=== PATIENT | female | born 1975 | race African-American/Black ===

== ENCOUNTER 2016-10-07 09:06 | Emergency (ER) | payer OTHER ==
[~2016-10-07 09:06] MED LIST: METR500T PO
[2016-10-07 09:17] VITALS: BP 102/64
--- NOTE | 2016-10-07 09:30 | PHYS DOC ---
Past Medical History Past Medical History: No Pertinent History Past Surgical History: Tubal ligation, Other Additional Past Surgical Histo: uterine ablation, fistula, bunion, bilateral carpal tunnel Alcohol Use: None Drug Use: None Adult General Chief Complaint Chief Complaint: COUGH HPI HPI Patient is a 41 year old female who presents with complaint of cough, body aches, sore throat for the past 5 days. Patient states that her symptoms have been persistent since onset. Patient states that she has had productive cough of yellow sputum. Patient also states that she has burning in her chest with both inspiration and expiration. Patient states that she has had fevers at home. Denies any nausea, vomiting, or abdominal pain. Patient has been taking [id number] medication with minimal relief in symptoms. Patient denies any history of asthma. Review of Systems Review of Systems Constitutional: Fever, body aches [] Eyes: Denies change in visual acuity, redness, or eye pain [] HENT: Nasal congestion, sore throat [] Respiratory: Shortness of breath, cough [] Cardiovascular: Denies chest pain or edema [] GI: Denies abdominal pain, nausea, vomiting, bloody stools or diarrhea [] : Denies dysuria or hematuria [] Musculoskeletal: Denies back pain or joint pain [] Integument: Denies rash or skin lesions [] Neurologic: Headache, denies focal weakness or sensory changes [] Allergies Allergies Allergies Coded Allergies Type Severity Reaction Last Updated Verified No Known Drug Allergies 08/30/13 No Physical Exam Physical Exam Constitutional: Alert, afebrile, appears in mild discomfort. [] HENT: Normocephalic, atraumatic, bilateral external ears normal, oropharynx erythematous, no oral exudates, nose normal. [] Eyes: PERRLA, EOMI, conjunctiva normal, no discharge. [] Neck: Normal range of motion, no tenderness, supple, no stridor. [] Cardiovascular:Heart rate regular rhythm, no murmur [] Lungs & Thorax: Bilateral breath sounds clear to auscultation [] Abdomen: Bowel sounds normal, soft, no tenderness, no masses, no pulsatile masses. [] Skin: Warm, dry, no erythema, no rash. [] Back: No tenderness, no CVA tenderness. [] Extremities: No tenderness, no cyanosis, no clubbing, ROM intact, no edema. [] Neurologic: Alert and oriented X 3, normal motor function, normal sensory function, no focal deficits noted. [] Current Patient Data Vital Signs Vital Signs Date Time Temp Pulse Resp B/P Pulse Ox O2 Delivery O2 Flow Rate FiO2 10/07/16 09:17 99.1 92 14 102/64 95 Room Air 99.1 EKG EKG Not performed [] Radiology/Procedures Radiology/Procedures [facility] [address] [place] [address] IMAGING REPORT Signed PATIENT: ANSON PETE ACCOUNT: [id number] : 1975 LOCATION: ER AGE: 41 SEX: F EXAM STATUS: REG ER ORD. PHYSICIAN: ESTRELLITA CÁRDENAS MD REASON: productive cough for 5 days PROCEDURE: CHEST PA & LATERAL Two view chest History:Productive cough for 5 days . PA and lateral views of the chest are submitted. Comparison: None Findings: There is no significant infiltrate, pleural effusion, or pneumothorax. The pericardial cardiac silhouette is within normal limits in size. The trachea is in the midline. Cervical fusion hardware is not fully included. Impression: There is no evidence of acute cardiopulmonary disease. DICTATED and SIGNED BY: ARUN FERNÁNDEZ MD DATE: 10/07/16 0950 CC: ESTRELLITA CÁRDENAS MD; NAYLA PLATT DO ~ [] Course & Med Decision Making Course & Med Decision Making Pertinent Labs and Imaging studies reviewed. (See chart for details) Patient's chest x-ray did not show evidence of pneumonia. The patient's symptoms are consistent with a viral infection. Differential included influenza , however due to onset of symptoms 5 days ago, the patient does not qualify for treatment with Tamiflu. The patient will be continued on symptomatic care at home with recommended follow-up in 3 days a primary doctor. Advised return emergency department for any worsening symptoms. Patient voiced understanding and in agreement with treatment plan. Dragon Disclaimer Dragon Disclaimer This electronic medical record was generated, in whole or in part, using a voice recognition dictation system. Departure Departure Impression: Primary Impression: Upper respiratory infection Disposition: HOME, SELF-CARE Condition: STABLE Referrals: NAYLA PLATT DO (PCP) Patient Instructions: Upper Respiratory Infection, Adult Additional Instructions: You may take [id number] Sudafed to help with congestion. Take the [place] tablets for pain and cough. Take ibuprofen for inflammation and fever. Follow- up with your primary doctor in the next 3 days if symptoms are not improving. Return to the emergency department for any worsening symptoms. Scripts Ibuprofen 600 Mg [id number] Mg PO Q6HRS PRN INFLAMMATION #30 TAB Prov:ESTRELLITA CÁRDENAS MD 10/07/16 Hydrocodone/Apap 5-325 ([place] 5-325 Tablet)1 Each Tablet1-2 Tab PO Q4-6HRS PRN PAIN #20 TAB Prov:ESTRELLITA CÁRDENAS MD 10/07/16 Problem Qualifiers Primary Impression: Upper respiratory infection URI type: unspecified URI Qualified Code: J06.9 - Acute upper respiratory infection, unspecified ESTRELLITA CÁRDENAS MD Oct 07, 2016 09:30
--- NOTE | 2016-10-07 09:53 | RAD ---
Two view chest History:Productive cough for 5 days . PA and lateral views of the chest are submitted. Comparison: None Findings: There is no significant infiltrate, pleural effusion, or pneumothorax. The pericardial cardiac silhouette is within normal limits in size. The trachea is in the midline. Cervical fusion hardware is not fully included. Impression: There is no evidence of acute cardiopulmonary disease.
[2016-10-07] MEDS ORDERED: HYDR-971 PO (09:57)
[2016-10-07] MEDS ORDERED: IBUP-1007 PO (09:57)
[2016-10-07] MEDS ORDERED: BENZONATATE 100 MG CAPSULE. PO ONE (10:15)
[2016-10-07] MEDS ORDERED: IBUPROFEN 600 MG TABLET. PO ONE (10:15)
== END 2016-10-07 10:20 | disposition home or self-care (01) ==
LOC: ER 09:06
DX: J06.9 Acute upper respiratory infection, unspecified (principal)
CPT/HCPCS: 71020; 99284

== ENCOUNTER 2017-02-24 15:00 | Emergency (ER) | payer OTHER ==
[~2017-02-24] VITALS: Ht 162.6 cm; Wt 77.1 kg
[~2017-02-24 15:00] MED LIST changes: +HYDR-971 PO; +IBUP-1007 PO
--- NOTE | 2017-02-24 15:29 | PHYS DOC ---
Past Medical History Past Medical History: No Pertinent History Past Surgical History: Tubal ligation, Other Additional Past Surgical Histo: uterine ablation, fistula, bunion, bilateral carpal tunnel Alcohol Use: None Drug Use: None Adult General Chief Complaint Chief Complaint: ABDOMINAL PAIN HPI HPI Patient is a 41 year old female who presents with complaint of nausea, abdominal pain, and diarrhea. Patient states that she started developing symptoms while she was traveling in [place] [facility]. Symptom onset was 6 days ago. Patient states his symptoms have been persistent. Patient states that she has been having cramping type pain in her lower abdomen and has had numerous loose stools over the past several days. Patient has had nausea but denies vomiting. Patient has been able to tolerate by mouth intake but states that this does worsen her symptoms. Patient tried taking Pepto-Bismol last night with no relief in symptoms. Patient denies any fevers and denies any blood or mucus in her stool. Patient rates pain currently 6 out of 10. Review of Systems Review of Systems Constitutional: Denies fever or chills [] Eyes: Denies change in visual acuity, redness, or eye pain [] HENT: Denies nasal congestion or sore throat [] Respiratory: Denies cough or shortness of breath [] Cardiovascular: Denies chest pain or edema [] GI: Nausea, abdominal pain, diarrhea, denies bloody stools [] : Denies dysuria or hematuria [] Musculoskeletal: Denies back pain or joint pain [] Integument: Denies rash or skin lesions [] Neurologic: Denies headache, focal weakness or sensory changes [] Current Medications Current Medications Current Medications Medications (Trade) Dose Ordered Sig/[facility] Start Time Stop Time Status Last Admin Dose Admin Acetaminophen (Tylenol) 650 mg 1X ONCE 02/24/17 15:45 02/24/17 15:46 DC 02/24/17 15:51 650 MG Acetaminophen/ Hydrocodone Bitart (Lortab 5/325) 1 tab 1X ONCE 02/24/17 15:30 02/24/17 15:40 DC Ciprofloxacin (Cipro) 500 mg 1X ONCE 02/24/17 16:00 02/24/17 16:01 DC Ondansetron HCl (Zofran Odt) 4 mg 1X ONCE 02/24/17 15:30 02/24/17 15:31 DC 02/24/17 15:31 4 MG Allergies Allergies Allergies Coded Allergies Type Severity Reaction Last Updated Verified No Known Drug Allergies 08/30/13 No Physical Exam Physical Exam Constitutional: Alert, afebrile, no acute distress. [] HENT: Normocephalic, atraumatic, bilateral external ears normal, oropharynx moist, no oral exudates, nose normal. [] Eyes: PERRLA, EOMI, conjunctiva normal, no discharge. [] Neck: Normal range of motion, no tenderness, supple, no stridor. [] Cardiovascular:Heart rate regular rhythm, no murmur [] Lungs & Thorax: Bilateral breath sounds clear to auscultation [] Abdomen: Bowel sounds normal, soft, no tenderness, no masses, no pulsatile masses. [] Skin: Warm, dry, no erythema, no rash. [] Back: No tenderness, no CVA tenderness. [] Extremities: No tenderness, no cyanosis, no clubbing, ROM intact, no edema. [] Neurologic: Alert and oriented X 3, normal motor function, normal sensory function, no focal deficits noted. [] Current Patient Data Vital Signs Vital Signs Date Time Temp Pulse Resp B/P (MAP) Pulse Ox O2 Delivery O2 Flow Rate FiO2 02/24/17 15:07 98.2 87 16 120/66 (84) 97 Room Air 98.2 Lab Values Laboratory Tests Test 02/24/17 15:10 Urine Collection Type Void Urine Color Yellow Urine Clarity Clear Urine pH 5.0 Urine Specific [place] 1.025 Urine Protein Negative mg/dL (NEG-TRACE) Urine Glucose (UA) Negative mg/dL (NEG) Urine Ketones (Stick) Negative mg/dL (NEG) Urine Blood Trace (NEG) Urine Nitrite Negative (NEG) Urine Bilirubin Negative (NEG) Urine Urobilinogen Dipstick 0.2 mg/dL (0.2 mg/dL) Urine Leukocyte Esterase Negative (NEG) Urine RBC Rare /HPF (0-2) Urine WBC Rare /HPF (0-4) Urine Squamous Epithelial Cells Many /LPF Urine Bacteria Moderate /HPF (0-FEW) Urine Mucus Marked /LPF EKG EKG Not performed [] Radiology/Procedures Radiology/Procedures Not performed [] Course & Med Decision Making Course & Med Decision Making Pertinent Labs and Imaging studies reviewed. (See chart for details) I have high suspicion the patient has traveler's diarrhea. Stool specimen was collected for testing with results pending at this time. The patient will be empirically treated with oral Cipro. Patient discharged with prescriptions for Zofran, [place], and a 5 day course of Cipro. Advised follow-up with primary doctor in the next 3-5 days and return to the emergency department for any worsening symptoms. Patient was understanding and in agreement with treatment plan. Dragon Disclaimer Dragon Disclaimer This electronic medical record was generated, in whole or in part, using a voice recognition dictation system. Departure Departure Impression: Primary Impression: Diarrhea Disposition: 01 HOME, SELF-CARE Condition: IMPROVED Referrals: NAYLA PLATT DO (PCP) Patient Instructions: Diarrhea Additional Instructions: Follow-up with your primary doctor in 3-5 days for reevaluation. Return to the emergency department for any worsening symptoms. Scripts Ciprofloxacin Hcl (CIPRO) 500 Mg Tablet 1 TAB PO BID, #10 TAB Prov: ESTRELLITA CÁRDENAS MD 02/24/17 Ondansetron (ZOFRAN ODT) 4 Mg Tab.rapdis 1 TAB SL Q8HRS Y for NAUSEA/VOMITING, #15 TAB Prov: ESTRELLITA CÁRDENAS MD 02/24/17 Hydrocodone/Apap 5-325 (NORCO 5-325 TABLET) 1 Each Tablet 1-2 TAB PO Q4-6HRS Y for PAIN, #20 TAB Prov: ESTRELLITA CÁRDENAS MD 02/24/17 Problem Qualifiers Primary Impression: Diarrhea Diarrhea type: presumed infectious Qualified Codes: A09 - Infectious gastroenteritis and colitis, unspecified ESTRELLITA CÁRDENAS MD Feb 24, 2017 15:29
[2017-02-24] MEDS ORDERED: HYDROcodone/APAP 5/325MG 1 TAB TABLET PO ONE (15:30)
[2017-02-24] MEDS ORDERED: ONDANSETRON ODT 4 MG TAB.RAPDIS. PO ONE (15:30)
[2017-02-24 15:33] LABS: BILIRUBIN,URINE NEGATIVE (NEG); GLUCOSE,URINE NEGATIVE (NEG); NITRITE,URINE NEGATIVE (NEG); PROTEIN,URINE NEGATIVE (NEG-TRACE); UROBILINOGEN,URINE 0.2 mg/dL (0.2 mg/dL)
[2017-02-24 15:38] LABS: BACTERIA,URINE MODERATE /HPF (0-FEW); RBC,URINE RARE /HPF (0-2); SQUAMOUS EPITHELIAL CELL,UR MANY /LPF; WBC,URINE RARE /HPF (0-4)
[2017-02-24] MEDS ORDERED: ACETAMINOPHEN 325 MG TABLET. PO ONE (15:45)
[2017-02-24 15:50] VITALS: BP 96/59
[2017-02-24] MEDS ORDERED: CIPROFLOXACIN HCL 250 MG TABLET. PO ONE (16:00)
[2017-02-24] MEDS ORDERED: HYDR-971 PO (16:07)
[2017-02-24] MEDS ORDERED: ONDA4TAB10 SL (16:07)
[2017-02-24] MEDS ORDERED: CIPR500T94 PO (16:07)
== END 2017-02-24 16:15 | disposition home or self-care (01) ==
LOC: ER 15:00
DX: A09 Infectious gastroenteritis and colitis, unspecified (principal); Z98.51 Tubal ligation status
CPT/HCPCS: 81001; 87086; 87205; 87324; 99284; Q0162; 87045